=== PATIENT | male | born 1965 | race Caucasian/White ===

== ENCOUNTER → 2019-02-11 13:38 | Outpatient (CLI) | payer OTHER, SELFPAY ==
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
== END ==
PROVIDERS: Visit Provider Physical Medicine & Rehabilitation
DX: M50.323 Other cervical disc degeneration at C6-C7 level (principal); M48.02 Spinal stenosis, cervical region
CPT/HCPCS: 72050

== ENCOUNTER 2021-02-25 13:12 | Emergency (ER) | payer OTHER, SELFPAY ==
[2021-02-25] VITALS (9 sets, daily range): BP systolic 118–143; BP diastolic 70–81; PULSE 69–87; RESP 16–17; TEMP 36.9; O2SAT 97–99
--- NOTE | 2021-02-25 | DI.RAD.S_ITS ---
PROCEDURE: XR LUMBAR SPINE 2-3V INDICATIONS: twisted back TECHNIQUE: 3 views of the lumbar spine were acquired. COMPARISON: None. FINDINGS: Bones: Mild anterior wedging of the at T12 and L1 vertebral bodies. Multilevel degenerative endplate sclerosis and spurring. Diffuse facet arthropathy. Straightening of the normal lordotic curvature. Moderate narrowing of the T12-L1 and L1-L2 disc spaces. Mild narrowing of the remaining lumbar disc spaces. Soft tissues: Overlying bowel gas pattern is normal. No suspicious soft tissue calcifications. IMPRESSION: Mild anterior wedging of the T12 and L1 vertebral bodies, technically age indeterminate. Recommend clinical correlation. Spondylitic changes and facet arthropathy as above. Dictated by: Tommy Jamil M.D. on 02/25/2021 at 15:15 Approved by: Tommy Jamil M.D. on 02/25/2021 at 15:16
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
[2021-02-25] MEDS: diazePAM 5 MG TABLET PO (16:06)
[2021-02-25] MEDS: KETOROLAC 30 MG/ML VIAL IM (16:06)
--- NOTE | 2021-02-27 09:35 | PC.NURSE ---
called / spoke w/ Az. Encouraged movement. Encouraged to f/u as needed and indicated and return for any needs, concerns, worsening of symptoms.
== END 2021-02-25 18:23 | disposition home or self-care (01) ==
PROVIDERS: Emergency Provider Emergency Medicine
DX: S39.012A Strain of muscle, fascia and tendon of lower back, initial encounter (principal); X50.9XXA Other and unspecified overexertion or strenuous movements or postures, initial encounter
CPT/HCPCS: 72070; 72100; 96372; 99283; J1885

== ENCOUNTER → 2021-03-17 17:32 | Outpatient (CLI) | payer OTHER, SELFPAY ==
--- NOTE | 2021-03-17 17:35 | DI.MRI.S_ITS ---
PROCEDURE: MR LUMBAR SPINE WO CON INDICATIONS: Lmbar Radiculopathy TECHNIQUE: Noncontrast sagittal T1 spin echo and T2 fast echo, sagittal STIR, axial T1 and T2 fast spin echo through the lumbar spine. In cases with scoliosis, additional coronal T2 fast spin echo may be performed. COMPARISON: None. FINDINGS: Image quality: Excellent. Alignment and Curvature: There is normal bony alignment. Bone Marrow: Anterior osteophytes noted at the thoracolumbar junction. Degenerative endplate changes present at L5-S1. Spinal Cord: Conus medullaris terminates at the L1 level. Visualized cord demonstrates normal signal and size. Paraspinous Soft Tissues: No paravertebral masses. L1-L2: Moderate disc space narrowing and circumferential disc bulge present. Mild central and no foraminal stenosis present. L2-L3: Disc height is preserved. There is a circumferential disc bulge with mild central stenosis. No foraminal stenosis present. L3-L4: Disc height is preserved. No central or foraminal stenosis. L4-L5: Mild disc height loss and circumferential disc bulge present. There is a broad-based right foraminal disc bulge with superimposed right foraminal disc protrusion measuring up to 3 mm in thickness resulting in moderate right foraminal stenosis. Mild left foraminal stenosis and no central stenosis. There is effacement of the right lateral recess present. L5-S1: Moderate disc height loss and degenerative endplate changes. No central stenosis. Hypertrophic facet joints result in severe right and moderate left foraminal stenosis IMPRESSION: Multilevel degenerative disc disease and arthropathy resulting in varying degrees of central and foraminal stenosis including moderate right foraminal stenosis at L4-5 and a severe right foraminal stenosis L5-S1 Approved by: Ji Collins M.D. on 03/17/2021 at 17:57
== END ==
PROVIDERS: Referring Provider Physical Medicine & Rehabilitation; Visit Provider Physical Medicine & Rehabilitation
DX: M54.5 Low back pain (principal); M51.16 Intervertebral disc disorders with radiculopathy, lumbar region; M47.26 Other spondylosis with radiculopathy, lumbar region; M48.061 Spinal stenosis, lumbar region without neurogenic claudication; M48.07 Spinal stenosis, lumbosacral region
CPT/HCPCS: 72148

== ENCOUNTER → 2022-12-20 11:37 | Outpatient (CLI) | payer OTHER, SELFPAY ==
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
== END ==
PROVIDERS: Referring Provider Nurse Practitioner Family; Visit Provider Nurse Practitioner Family
DX: R22.41 Localized swelling, mass and lump, right lower limb (principal)
CPT/HCPCS: 93971

== ENCOUNTER → 2022-12-22 16:28 | Outpatient (CLI) | payer OTHER, SELFPAY ==
[2022-12-22 18:36] LABS: Add Manual Diff / Slide Review NO; Basophils Absolute Auto 100 /uL (0-100); Basophils Percent Auto 0.7 % (0-2); Eosinophils Absolute Auto 400 /uL (0-450); Eosinophils Percent Auto 5.7 % (2-4); Hematocrit 43.3 % (41-53); Lymphocytes Absolute Auto 2700 /uL (1100-4500); Lymphocytes Percent Auto 35.2 % (25-40); Mean Corpuscular HGB Conc 34.6 % (30-36); Mean Corpuscular Volume 95.5 fL (80-100); Monocytes Absolute Auto 700 /uL (0-900); Monocytes Percent Auto 9.9 % (3-14); Neutrophils Absolute Auto 3700 /uL (1500-7000); Neutrophils Percent Auto 48.5 % (50-75); Platelet Count 191 X10^3/uL (150-400); Red Blood Cell Count 4.53 X10^6/uL (4.5-5.9); Red Cell Distribution Width 12.9 % (11.6-14.8); White Blood Cell Count 7.5 X10^3/uL (4.5-11.0)
[2022-12-22 19:06] LABS: Alanine Aminotransferase 28 IU/L (<50); Albumin 4.1 g/dL (3.5-5.0); Albumin Globulin Ratio 1.3 (1.0-2.8); Alkaline Phosphatase 46 U/L (38-126); Aspartate Aminotransferase 27 IU/L (17-59); BUN Creatinine Ratio 21.9 (6-22); Bilirubin Total 0.5 mg/dL (0.2-1.3); Blood Urea Nitrogen 21 mg/dL (9-20); Calcium 9.7 mg/dL (8.4-10.2); Carbon Dioxide 28 mmol/L (22-32); Chloride 101 mmol/L (98-107); Cholesterol 230 mg/dL (140-199); Estimated Glomerular Filt Rate > 60 mL/min (>60); Globulin 3.1 g/dL (1.7-4.1); Glucose 85 mg/dL (70-100); HDL Cholesterol 58 mg/dL (40-60); HEMOLYSIS < 15 (0-50); LDL Cholesterol Calculated 152 mg/dL (<100); Potassium 3.7 mmol/L (3.4-5.1); Sodium 138 mmol/L (137-145); Total Protein 7.2 g/dL (6.3-8.2); Triglycerides 102 mg/dL (35-150)
[2022-12-22 19:43] LABS: Vitamin D 25 Hydroxy (D3) 69.4 ng/mL (30.0-100.0)
[2022-12-22 19:51] LABS: Vitamin B12 316 pg/mL (239-931)
[2022-12-24 12:07] LABS: Labcorp Hemoglobin (Hb) A1c 5.9 % (4.8-5.6)
== END ==
PROVIDERS: PCP Family Medicine; Referring Provider Family Medicine; Visit Provider Family Medicine
DX: Z00.00 Encounter for general adult medical examination without abnormal findings (principal)
CPT/HCPCS: 36415; 80053; 80061; 82306; 82607; 83036; 85025; 86140